=== PATIENT | female | born 1950 | race Caucasian/White ===

== ENCOUNTER 2017-11-26 16:54 | Emergency (ER) | payer OTHER ==
[~2017-11-26] VITALS: Ht 149.9 cm; Wt 64.4 kg
[2017-11-26 17:00] VITALS: BP 152/75
--- NOTE | 2017-11-26 17:04 | NUR ---
PT BIB WHEELCHAIR TO [facility]
--- NOTE | 2017-11-26 17:05 | NUR ---
67/F BIB DAUGHTER C/O BLISTER TO LEFT FOOT WITH SURROUNDING ERYTHEMA SINCE SATURDAY. HX DM, HTN.DENIES N/V/D; SKIN IS PINK/WARM/DRY; AAOX4 WITH EVEN AND STEADY GAIT; LUNGS CLEAR BL. PATIENT STATES PAIN OF 0/10 AT THIS TIME.S.
[2017-11-26] MEDS ORDERED: cefTRIAXone 2,000 MG in DEXTROSE 5% 100 ML IV ONE (17:35)
[2017-11-26] MEDS ORDERED: cefTRIAXone 2,000 MG VIAL ONE (17:45)
[2017-11-26 18:55] VITALS: BP 144/79
--- NOTE | 2017-11-26 18:55 | NUR ---
Patient discharged with BP 144/[address] JONES. Written and verbal after care instructions given and explained. Patient alert, oriented and verbalized understanding of instructions. Ambulatory with steady gait. All questions addressed prior to discharge. ID band removed. Patient advised to follow up with PMD. Rx of KEFLEX given. Patient educated on indication of medication including possible reaction and side effects. Opportunity to ask questions provided and answered.
== END 2017-11-26 18:55 | disposition home or self-care (01) ==
LOC: MED 16:54
DX: L03.116 Cellulitis of left lower limb (principal); E11.9 Type 2 diabetes mellitus without complications; I10 Essential (primary) hypertension; Z88.0 Allergy status to penicillin; Z88.2 Allergy status to sulfonamides; Z88.5 Allergy status to narcotic agent; Z88.6 Allergy status to analgesic agent
CPT/HCPCS: 96365; 99284; J0696

== ENCOUNTER 2020-08-23 12:08 | Emergency (ER) | payer OTHER ==
[~2020-08-23] VITALS: Ht 149.9 cm; Wt 64.0 kg
[2020-08-23 12:18] VITALS: BP 168/81
--- NOTE | 2020-08-23 12:30 | NUR ---
C/O RIGHT HAND PAIN 8/10 S/P HER GRANDSON PULL HER 5TH FINGER X 3 DAYS. BLOOD SUGAR 408 AT THIS TIME. PMH: DM, HTN
--- NOTE | 2020-08-23 12:35 | NUR ---
PT TAKEN TO [facility].
--- NOTE | 2020-08-23 13:08 | NUR ---
Patient being evaluated by HENOK BAILON at [facility].
--- NOTE | 2020-08-23 13:50 | NUR ---
PTS FITH FINGER WAS PLACED ON A FINGER SPLINT AND WRAPED WITH COBAND. [place] [facility] [place]
[2020-08-23 13:55] VITALS: BP 168/81
== END 2020-08-23 13:55 | disposition home or self-care (01) ==
LOC: MED 12:08
DX: S56.117A Strain of flexor muscle, fascia and tendon of right little finger at forearm level, initial encounter (principal); E11.9 Type 2 diabetes mellitus without complications; I10 Essential (primary) hypertension; Z88.0 Allergy status to penicillin; Z88.6 Allergy status to analgesic agent; Z88.2 Allergy status to sulfonamides; Z88.5 Allergy status to narcotic agent; X58.XXXA Exposure to other specified factors, initial encounter; Y93.89 Activity, other specified; Y92.89 Other specified places as the place of occurrence of the external cause; Y99.8 Other external cause status
CPT/HCPCS: 73140; 82948; 99284

== ENCOUNTER 2022-12-04 16:23 | Emergency (ER) | payer OTHER ==
[~2022-12-04] VITALS: Ht 149.9 cm; Wt 54.4 kg
--- NOTE | 2022-12-04 16:25 | NUR ---
PATIENT BIBA TO BED 5.
[2022-12-04 16:32] VITALS: BP 138/70
[2022-12-04 17:01] LABS: BASOPHILS # (AUTO) 0.2 K/uL (0.00-0.22); BASOPHILS % (AUTO) 2.7 % (0.0-2.0); EOSINOPHILS # (AUTO) 0.2 K/uL (0-0.4); EOSINOPHILS % (AUTO) 1.9 % (0.0-4.0); HEMATOCRIT 35.4 % (36-48); HEMOGLOBIN 12.1 g/dL (12.0-16.0); LYMPHOCYTES # (AUTO) 1.2 K/uL (2.5-16.5); LYMPHOCYTES % (AUTO) 15.2 % (20.5-51.1); MEAN CORPUSCULAR HEMOGLOBIN 29 pg (27-31); MEAN CORPUSCULAR HGB CONC 34 g/dL (33-37); MONOCYTES # (AUTO) 0.5 K/uL (0.8-1.0); MONOCYTES % (AUTO) 6.7 % (1.7-9.3); NEUTROPHILS # (AUTO) 5.7 K/uL (1.8-7.7); NEUTROPHILS % (AUTO) 73.5 % (42.2-75.2); PLATELET COUNT (AUTO) 101 K/uL (140-450); RED BLOOD CELL COUNT(AUTO) 4.12 MIL/uL (4.20-5.40); RED CELL DISTRIBUTION WIDTH 14.7 % (11.6-13.7); WHITE BLOOD COUNT (AUTO) 7.8 K/uL (4.8-10.8)
[2022-12-04 17:20] LABS: ANION GAP 13.9 (8-16); CARBON DIOXIDE 27.4 mmol/L (21-32); CHLORIDE 95 mmol/L (98-107); CREATININE 0.9 mg/dL (0.6-1.3); GLUCOSE 214 mg/dL (74-106); POTASSIUM 3.3 mmol/L (3.5-5.1); SODIUM SERUM 133 mmol/L (136-145); UREA NITROGEN, BLOOD 15 mg/dL (7-18)
--- NOTE | 2022-12-04 19:26 | NUR ---
PATIENT'S DTR ESCORTED TO BEDSIDE PER MD REQUEST
[2022-12-04 19:39] VITALS: BP 138/70
--- NOTE | 2022-12-04 19:39 | NUR ---
Patient discharged with v/s stable. Written and verbal after care instructions given and explained. Patient verbalized understanding. Ambulatory with steady gait. All questions addressed prior to discharge. Advised to follow up with PMD. DX: [id number]
== END 2022-12-04 19:39 | disposition home or self-care (01) ==
LOC: MED 16:23
DX: E11.649 Type 2 diabetes mellitus with hypoglycemia without coma (principal); Z88.0 Allergy status to penicillin; Z88.2 Allergy status to sulfonamides; Z88.5 Allergy status to narcotic agent; Z79.82 Long term (current) use of aspirin; Z79.4 Long term (current) use of insulin; Z79.899 Other long term (current) drug therapy
CPT/HCPCS: 36415; 71045; 80048; 85025; 99291; Q0092